=== PATIENT | female | born 2000 | race Caucasian/White ===

== ENCOUNTER 2019-06-21 12:41 | Emergency (ER) | payer OTHER, SELFPAY ==
--- NOTE | 2019-06-21 13:10 | RAD ---
PA AND LATERAL CHEST: HISTORY: Cough. FINDINGS: The cardiomediastinal is normal. The lungs are well expanded and clear. The bony thorax is normal. IMPRESSION: Normal examination. POS: [facility]
[2019-06-21] MEDS ORDERED: Dexamethasone 10 MG/ML VIAL ONE (13:14)
== END 2019-06-21 13:51 | disposition home or self-care (01) ==
LOC: ERS 12:41
DX: J02.8 Acute pharyngitis due to other specified organisms (principal); B97.89 Other viral agents as the cause of diseases classified elsewhere
CPT/HCPCS: 71046; 87081; 87430; J1100